=== PATIENT | female | born 1985 | race Caucasian/White ===

== ENCOUNTER 2016-10-20 18:58 | Emergency (ER) | payer BC ==
[~2016-10-20 18:58] MED LIST: CYCL1PAK PO; DILA2TAB2; DILA2TAB2 PO; GABA300 PO; NORT1CAP53 PO; PERI8.6T PO
[2016-10-20 19:00] VITALS: BP 142/83; PULSE 115; RESP 20; TEMP 97.8; O2SAT 99
--- NOTE | 2016-10-21 17:30 | EKG ---
Date Performed: 10/20/2016 Time Performed: 19:53:04 PTAGE: 30 years EKG: SINUS TACHYCARDIA WHEN COMPARED TO PRIOR TRACING PATIENT IS NOW TACHYCARDIC. ABNORMAL RHYTH M ECG NO PREVIOUS TRACING DOCTOR: Madeline Zheng Interpretating Date/Time 10/21/2016 17:29:02
[2016-10-21] MEDS ORDERED: ROBA750T PO (18:37)
== END 2016-10-20 20:36 | disposition left against medical advice (07) ==
LOC: NED 18:58
DX: R00.0 Tachycardia, unspecified (principal)
CPT/HCPCS: 93005; 99281

== ENCOUNTER 2016-10-21 13:59 | Emergency (ER) | payer BC ==
[~2016-10-21] VITALS: Ht 170.2 cm; Wt 70.0 kg
[2016-10-21 14:02] VITALS: BP 136/93; PULSE 78; RESP 16; TEMP 98.4; O2SAT 98
[2016-10-21 15:11] VITALS: BP 134/90; PULSE 118; RESP 29; O2SAT 99
[2016-10-21] MEDS ORDERED: SODIUM CHLORIDE 0.9% FLUSH 5 ML FLUSH IVF PRN (15:15)
--- NOTE | 2016-10-21 15:36 | PD ---
HPI Chief Complaint: Chest Pain Time Seen by Provider: 15:02 Travel History International Travel<30 days: No Contact w/Intl Traveler<30days: No Traveled to known affect area: No History of Present Illness HPI 30-year-old female with history of heroin IVDU here with complaint of chest pain. She has had now 3 days of pleuritic left-sided chest pain that radiates inframammary and subscapular. Pain is made worse with deep inspiration, movement. She notes cough productive of clear to yellow sputum. No fevers or chills. Patient notes a history of PE, right sided. This was at [facility] 4 months ago. She was discharged home with Lovenox but discontinued using the stating that the injections hurt. She is unable to tell me whether these were or were not septic pulmonary emboli. [facility] Past Medical History ADD: Yes ADHD: Yes Arthritis: No Asthma: No Autoimmune Disease: No Blood Disorders: No Bipolar Disorder: Yes Anxiety: Yes Depression: Yes Heart Rhythm Problems: No Cancer: No Cardiovascular Problems: No High Cholesterol: No Chemotherapy: No Chest Pain: No Congestive Heart Failure: No COPD: No Cerebrovascular Accident: No Diabetes: No Diminished Hearing: No Endocrine: No Gastrointestinal Disorders: Yes (CHRON'S DISEASE) GERD: No Glaucoma: No Genitourinary: Yes Headaches: No Hepatitis: Yes (HEPATITIS C) Hiatal Hernia: No Hypertension: No Immune Disorder: No Kidney Stones: No Musculoskeletal: No Neurologic: Yes (seizures) Psychiatric: No Reproductive: No Respiratory: Yes (PE) Migraines: No Myocardial Infarction: No Pancreatitis: Yes Radiation Therapy: No Renal Failure: Yes Seizures: Yes Sickle Cell Disease: No Sleep Apnea: No Thyroid Disease: No Ulcer: No PNEUMOCCOCAL Vaccine (Year): 3 ?: Not LMP: 10/02/16 Menopausal: No : 4 Para: 3 Miscarriage: 1 : 0 Ovarian Cysts: Yes (L OVARY REMOVED) Dilation and Curettage (D&C): Yes (01/06) Past Surgical History Abdominal Surgery: Yes (INTESTINE SURGERY) AICD: No Appendectomy: Yes Arteriovenous Shunt: No Cardiac Surgery: No Section: No Cholecystectomy: Yes Ear Surgery: No Endocrine Surgery: No Eye Surgery: No Genitourinary Surgery: No Gynecologic Surgery: Yes (LT OVARY/FALLOPIAN TUBE REMOVED, D&C) Insulin Pump: No Joint Replacement: No Neurologic Surgery: No Oral Surgery: No Pacemaker: No Thoracic Surgery: No Other Surgery: Yes (COMPARTMENT SYNDROME SX L WRIST 06/04) Social History Alcohol Use: Yes (OCC.) Tobacco Use: No (3 YRS. AGO/USES E CIGARETTES NOW) Substance Use: No Allergies-Medications (Allergen,Severity, Reaction): Coded Allergies: Codeine (Verified Allergy, Severe, Itching, 10/21/16) *MDRO Multi-Drug Resistant Organism (Verified Allergy, Unknown, 10/21/16) MRSA 2007 Reported Meds & Prescriptions Reported Meds & Active Scripts Active No Active Prescriptions or Reported Medications Review of Systems ROS Limitations: Poor Historian Except as stated in HPI: all other systems reviewed are Neg Physical Exam Exam Limitations: Poor Historian Narrative GENERAL: Young female restless but in no acute distress SKIN: Warm and dry. Tract pastor of various ages on the upper extremities HEAD: Normocephalic. EYES: No scleral icterus. No injection or drainage. ENT: Mucous membranes pink and moist. NECK: Supple CARDIOVASCULAR: Regular rate and rhythm. No murmur appreciated. Reproducible tenderness to palpation of the left side of the chest wall. No rash. RESPIRATORY: No accessory muscle use. Clear to auscultation. Breath sounds equal bilaterally. GASTROINTESTINAL: Abdomen soft, non-tender, nondistended. MUSCULOSKELETAL: Tract pastor as above. No edema. NEUROLOGICAL: Awake and alert. Normal speech. PSYCHIATRIC: Appropriate mood and affect; insight and judgment normal. Data Data Last Documented VS Vital Signs Date Time Temp Pulse Resp B/P Pulse Ox O2 Delivery O2 Flow Rate FiO2 10/21/16 15:11 118 29 134/90 99 Room Air 10/21/16 14:02 98.4 Orders Complete Blood Count With Diff (10/21/16 15:02) Basic Metabolic Panel (Bmp) (10/21/16 15:02) D-Dimer (10/21/16 15:02) Iv Access Insert/Monitor (10/21/16 15:02) Electrocardiogram (10/21/16 15:02) Ecg Monitoring (10/21/16 15:02) Oximetry (10/21/16 15:02) Sodium Chloride 0.9% Flush (Ns Flush) (10/21/16 15:15) Chest, Single Ap (10/21/16 ) Blood Culture (10/21/16 15:33) Ketorolac Inj (Toradol Inj) (10/21/16 15:45) Ct Pulmonary Angiogram (10/21/16 16:12) Labs Laboratory Tests Test 10/21/16 15:30 White Blood Count 9.5 TH/MM3 Red Blood Count 3.77 MIL/MM3 Hemoglobin 9.5 GM/DL Hematocrit 30.1 % Mean Corpuscular Volume 79.8 FL Mean Corpuscular Hemoglobin 25.2 PG Mean Corpuscular Hemoglobin 31.5 % Concent Red Cell Distribution Width 15.5 % Platelet Count 292 TH/MM3 Mean Platelet Volume 6.6 FL Neutrophils (%) (Auto) 79.2 % Lymphocytes (%) (Auto) 13.5 % Monocytes (%) (Auto) 6.9 % Eosinophils (%) (Auto) 0.1 % Basophils (%) (Auto) 0.3 % Neutrophils # (Auto) 7.5 TH/MM3 Lymphocytes # (Auto) 1.3 TH/MM3 Monocytes # (Auto) 0.6 TH/MM3 Eosinophils # (Auto) 0.0 TH/MM3 Basophils # (Auto) 0.0 TH/MM3 CBC Comment DIFF FINAL Differential Comment D-Dimer Quantitative (PE/DVT) 1.69 MG/L FEU Sodium Level 137 MEQ/L Potassium Level 3.8 MEQ/L Chloride Level 105 MEQ/L Carbon Dioxide Level 21.4 MEQ/L Anion Gap 11 MEQ/L Blood Urea Nitrogen 4 MG/DL Creatinine 0.55 MG/DL Estimat Glomerular Filtration 129 ML/MIN Rate Random Glucose 92 MG/DL Calcium Level 8.3 MG/DL MDM Medical Decision Making Medical Screen Exam Complete: Yes Emergency Medical Condition: Yes Medical Record Reviewed: Yes Differential Diagnosis 33-year-old female with history of heroin IVDU here with complaint of left- sided pleuritic chest pain 3 days with cough. Differential includes pneumonia , PE, septic pulmonary emboli, bacteremia, musculoskeletal. My suspicion for ACS or aortic dissection is exceedingly low. Narrative Course A buck placed on monitor, IV established and blood obtained. Given 30 mg Toradol. Twelve-lead EKG showed sinus tachycardia, rate [address] abnormalities, normal intervals. CBC, BMP, d-dimer, blood cultures notable for WBC 9.5, d-dimer 1.69. Portable chest x-ray obtained that by my read shows no acute abnormalities. CT pulmonary angiogram ordered, results remain pending at the time this dictation. Patient signed out to oncoming provider waiting results of same. Scripts No Active Prescriptions or Reported Meds Iesha Diehl MD Oct 21, 2016 15:36
--- NOTE | 2016-10-21 15:44 | RADRPT ---
EXAM DATE/TIME: 10/21/2016 15:07 [facility] COMPARISON: CHEST SINGLE AP, April 03, 2016, 15:16. INDICATIONS : Left side chest pain. MEDICAL HISTORY : Seizures. SURGICAL HISTORY : None. ENCOUNTER: Initial ACUITY: 2 days PAIN SCORE: 6/10 LOCATION: Left chest FINDINGS: Portable AP view of the chest demonstrates a normal-sized cardiac silhouette. No effusion, consolidat ion, or pneumothorax is visualized. The bones and soft tissues demonstrate no acute abnormality. Lung s are mildly underinflated. CONCLUSION: No acute cardiopulmonary abnormality is identified. Valdemar Meng MD on October 21, 2016 at 15:43 Board Certified Radiologist. This report was verified electronically.
[2016-10-21] MEDS ORDERED: KETOROLAC TROMETHAMINE 30 MG/ML (IVP) VIAL IV PUSH ONE (15:45)
[2016-10-21 15:53] LABS: AUTOMATED NEUTROPHIL # 7.5 TH/MM3 (1.8-7.7); BASOPHIL % 0.3 % (0.0-2.0); EOSINOPHIL % 0.1 % (0.0-4.0); HEMATOCRIT 30.1 % (35.0-46.0); HEMO FLAGS DIFF FINAL; LYMPH % 13.5 % (9.0-44.0); LYMPHOCYTE # 1.3 TH/MM3 (1.0-4.8); MEAN CELL VOLUME 79.8 FL (80.0-100.0); MEAN CORPUSCULAR HEMOGLOBIN 25.2 PG (27.0-34.0); MEAN CORPUSCULAR HGB CONC 31.5 % (32.0-36.0); MONO % 6.9 % (0.0-8.0); NEUT % 79.2 % (16.0-70.0); PLATELET COUNT 292 TH/MM3 (150-450); RED BLOOD COUNT 3.77 MIL/MM3 (4.00-5.30); RED CELL DISTRIBUTION WIDTH 15.5 % (11.6-17.2); WHITE BLOOD COUNT 9.5 TH/MM3 (4.0-11.0)
[2016-10-21 16:09] LABS: BICARBONATE 21.4 MEQ/L (21.0-32.0); POTASSIUM 3.8 MEQ/L (3.5-5.1)
--- NOTE | 2016-10-21 17:09 | PD ---
Physical Exam Narrative Patient was seen by ED physician and signed out to me. Data Data Last Documented VS Vital Signs Date Time Temp Pulse Resp B/P Pulse Ox O2 Delivery O2 Flow Rate FiO2 10/21/16 15:11 118 29 134/90 99 Room Air 10/21/16 14:02 98.4 Orders Complete Blood Count With Diff (10/21/16 15:02) Basic Metabolic Panel (Bmp) (10/21/16 15:02) D-Dimer (10/21/16 15:02) Iv Access Insert/Monitor (10/21/16 15:02) Electrocardiogram (10/21/16 15:02) Ecg Monitoring (10/21/16 15:02) Oximetry (10/21/16 15:02) Sodium Chloride 0.9% Flush (Ns Flush) (10/21/16 15:15) Chest, Single Ap (10/21/16 ) Blood Culture (10/21/16 15:33) Ketorolac Inj (Toradol Inj) (10/21/16 15:45) Ct Pulmonary Angiogram (10/21/16 16:12) Iohexol 350 Inj (Omnipaque 350 Inj) (10/21/16 18:10) Labs Laboratory Tests Test 10/21/16 15:30 White Blood Count 9.5 TH/MM3 Red Blood Count 3.77 MIL/MM3 Hemoglobin 9.5 GM/DL Hematocrit 30.1 % Mean Corpuscular Volume 79.8 FL Mean Corpuscular Hemoglobin 25.2 PG Mean Corpuscular Hemoglobin 31.5 % Concent Red Cell Distribution Width 15.5 % Platelet Count 292 TH/MM3 Mean Platelet Volume 6.6 FL Neutrophils (%) (Auto) 79.2 % Lymphocytes (%) (Auto) 13.5 % Monocytes (%) (Auto) 6.9 % Eosinophils (%) (Auto) 0.1 % Basophils (%) (Auto) 0.3 % Neutrophils # (Auto) 7.5 TH/MM3 Lymphocytes # (Auto) 1.3 TH/MM3 Monocytes # (Auto) 0.6 TH/MM3 Eosinophils # (Auto) 0.0 TH/MM3 Basophils # (Auto) 0.0 TH/MM3 CBC Comment DIFF FINAL Differential Comment D-Dimer Quantitative (PE/DVT) 1.69 MG/L FEU Sodium Level 137 MEQ/L Potassium Level 3.8 MEQ/L Chloride Level 105 MEQ/L Carbon Dioxide Level 21.4 MEQ/L Anion Gap 11 MEQ/L Blood Urea Nitrogen 4 MG/DL Creatinine 0.55 MG/DL Estimat Glomerular Filtration 129 ML/MIN Rate Random Glucose 92 MG/DL Calcium Level 8.3 MG/DL [facility] Supervised Visit with OSIRIS: No Interpretation(s) Last Impressions Chest X-Ray 10/21/16 0000 Signed Impressions: Service Date/Time: Friday, October 21, 2016 15:07 - CONCLUSION: No acute cardiopulmonary abnormality is identified. Valdemar Meng MD [address] pulmonary angiogram shows no evidence of PE. Diagnosis Primary Impression: Atypical chest pain Patient Instructions: General Instructions Additional Instruction: Robaxin as needed for pain. Advised patient to take Lovenox as directed. Follow-up with personal physician. Return if worse. Med/Other Pt SpecificInfo: Prescription(s) given Scripts Methocarbamol (Robaxin)750 Mg [id number] Mg PO QID #40 TAB Prov:Seb Medrano MD 10/21/16 Disposition: 01 DISCHARGE HOME Condition: Stable Seb Medrano MD Oct 21, 2016 17:09
[2016-10-21] MEDS ORDERED: IOHEXOL 350 MG/ML 10 ML VIAL (for RAD DIAG) IV ONE (18:10)
--- NOTE | 2016-10-21 18:31 | RADRPT ---
EXAM DATE/TIME: 10/21/2016 18:00 [facility] COMPARISON: CT PULMONARY ANGIOGRAM, April 04, 2016, 19:38. INDICATIONS : Left chest pain x 2 days. IV CONTRAST: 55 cc Omnipaque 350 (iohexol) IV RADIATION DOSE: 8.23 CTDIvol (mGy) MEDICAL HISTORY : Renal failure, chronic. Crohns disease. Pulmonary embolism. SURGICAL HISTORY : Appendectomy. Cholecystectomy. ENCOUNTER: Initial ACUITY: 2 days PAIN SCALE: 7/10 LOCATION: Left chest TECHNIQUE: Volumetric scanning of the chest was performed using a pulmonary embolism protocol MIP images were re constructed. Using automated exposure control and adjustment of the mA and/or kV according to patien t size, radiation dose was kept as low as reasonably achievable to obtain optimal diagnostic quality images. FINDINGS: PULMONARY ARTERIES: No filling defects are seen in the pulmonary arteries through the segmental level. LUNGS: There is no consolidation or pneumothorax . No concerning pulmonary nodule is visualized. PLEURAE: There is no pleural thickening or pleural effusion. MEDIASTINUM: There is good visualization of the great vessels of the middle mediastinum. No evidence of mediastin al or hilar adenopathy/mass. MUSCULOSKELETAL: Within normal limits for patient age. MISCELLANEOUS: The visualized upper abdominal organs demonstrate no acute abnormality. CONCLUSION: Normal examination. Star Sheikh Jr., MD on October 21, 2016 at 18:26 Board Certified Radiologist. This report was verified electronically.
[2016-10-21] MEDS ORDERED: ROBA750T PO (18:37)
[2016-10-21 19:07] VITALS: BP 128/77
--- NOTE | 2016-10-21 19:20 | EKG ---
Date Performed: 10/21/2016 Time Performed: 16:02:07 PTAGE: 30 years EKG: SINUS TACHYCARDIA WITH SHORT TX INTERVAL ABNORMAL RHYTHM ECG NO SIGNIFICANT CHANGE FROM KB OR ELECTROCARDIOGRAM. PREVIOUS TRACING : 10/20/2016 19.53 DOCTOR: Miguel Ospina Interpretating Date/Time 10/21/2016 19:18:52
== END 2016-10-21 19:10 | disposition home or self-care (01) ==
LOC: NEPD 13:59
DX: R07.89 Other chest pain (principal); R05 Cough; Z86.711 Personal history of pulmonary embolism; K50.90 Crohn's disease, unspecified, without complications; B19.20 Unspecified viral hepatitis C without hepatic coma; F17.200 Nicotine dependence, unspecified, uncomplicated; B96.89 Other specified bacterial agents as the cause of diseases classified elsewhere
CPT/HCPCS: 71010; 71275; 80048; 85025; 85379; 87040; 87077; 87186; 87205; 93005; 96374; 99285; J1885; Q9967

== ENCOUNTER 2018-03-13 02:23 | Emergency (ER) | payer SELFPAY ==
[~2018-03-13] VITALS: Ht 170.2 cm; Wt 69.7 kg
[~2018-03-13 02:23] MED LIST changes: -CYCL1PAK PO; -DILA2TAB2; -DILA2TAB2 PO; -GABA300 PO; -NORT1CAP53 PO; -PERI8.6T PO; +ROBA750T PO
[2018-03-13 02:52] VITALS: BP 135/81; PULSE 132; RESP 18; TEMP 98.4; O2SAT 95
[2018-03-13] MEDS ORDERED: SODIUM CHLORIDE 0.9% FLUSH 10 ML FLUSH IV FLUSH PRN (03:30)
[2018-03-13] MEDS ORDERED: MORPHINE SULFATE 4 MG/ML INJ IV PUSH ONE ×2 (03:30→05:00)
[2018-03-13] MEDS ORDERED: SODIUM CHLORID 0.9% 500 ML INJ 500 ML IV ONE (03:30)
[2018-03-13] MEDS ORDERED: ONDANSETRON ODT 4 MG TAB PO ONE (03:30)
[2018-03-13 04:22] VITALS: BP 111/85; PULSE 104; RESP 18; O2SAT 96
[2018-03-13 04:23] LABS: BILIRUBIN, URINE NEG (NEG); BLOOD, URINE NEG (NEG); GLUCOSE,URINE NEG (NEG); KETONE, URINE NEG (NEG); NITRITE,URINE NEG (NEG); PH, URINE 7.5 (5.0-8.5); URINE COLOR YELLOW (YELLW/STRAW); URINE LEUKOCYTE ESTERASE TRACE (NEG)
[2018-03-13 04:25] LABS: AUTOMATED NEUTROPHIL # 3.8 TH/MM3 (1.8-7.7); BASOPHIL % 0.3 % (0.0-2.0); EOSINOPHIL % 0.6 % (0.0-4.0); HEMATOCRIT 41.2 % (35.0-46.0); HEMOGLOBIN 13.8 GM/DL (11.6-15.3); LYMPH % 34.5 % (9.0-44.0); LYMPHOCYTE # 2.3 TH/MM3 (1.0-4.8); MEAN CELL VOLUME 93.1 FL (80.0-100.0); MEAN CORPUSCULAR HEMOGLOBIN 31.1 PG (27.0-34.0); MEAN CORPUSCULAR HGB CONC 33.4 % (32.0-36.0); MEAN PLATELET VOLUME 7.6 FL (7.0-11.0); MONO % 7.3 % (0.0-8.0); MONOCYTE # 0.5 TH/MM3 (0-0.9); NEUT % 57.3 % (16.0-70.0); PLATELET COUNT 215 TH/MM3 (150-450); RED BLOOD COUNT 4.42 MIL/MM3 (4.00-5.30); RED CELL DISTRIBUTION WIDTH 17.6 % (11.6-17.2); WHITE BLOOD COUNT 6.6 TH/MM3 (4.0-11.0)
[2018-03-13 04:32] LABS: BACTERIA, URINE OCC /hpf; MUCUS URINE FEW /lpf (OCC); RBC, URINE 0-3 /hpf (0-3); SQUAMOUS EPITHELIAL CELL URINE 0-5 /hpf (0-5)
[2018-03-13 04:33] LABS: AMORPHOUS SEDIMENT, URINE MOD
[2018-03-13 04:44] LABS: CHLORIDE 106 MEQ/L (98-107); SODIUM (NA) 140 MEQ/L (136-145)
[2018-03-13 04:48] LABS: ALBUMIN 3.2 GM/DL (3.4-5.0); BICARBONATE 22.7 MEQ/L (21.0-32.0); BLOOD UREA NITROGEN 4 MG/DL (7-18); CALCIUM 8.1 MG/DL (8.5-10.1); GLUCOSE,RANDOM 87 MG/DL (74-106); INTERNATIONAL NORMALIZED RATIO 1.1 RATIO; PROTHROMBIN TIME - PATIENT 11.4 SEC (9.8-11.6)
[2018-03-13 04:51] LABS: ALT (GPT) 54 U/L (10-53); AST (GOT) 191 U/L (15-37); CREATININE 0.47 MG/DL (0.50-1.00); GLOMERULAR FILTRATION RATE 153 ML/MIN (>89)
[2018-03-13 04:53] LABS: TOTAL BILIRUBIN ADULT 0.7 MG/DL (0.2-1.0); TOTAL PROTEIN 8.3 GM/DL (6.4-8.2)
[2018-03-13 04:54] LABS: ALKALINE PHOSPHATASE 268 U/L (45-117)
[2018-03-13 05:10] VITALS: BP 110/72; PULSE 106; RESP 18; O2SAT 95
--- NOTE | 2018-03-13 05:14 | PD ---
HPI Chief Complaint: GI Complaint Time Seen by Provider: 03:04 Travel History International Travel<30 days: No Contact w/Intl Traveler<30days: No Traveled to known affect area: No History of Present Illness HPI Patient is a 32-year-old female comes in complaining of abdominal pain. She has history of hepatitis C as well as Crohn's disease, and says that she has been having pain for the past 2 months, but it became acutely worse tonight. She says the pain is coming in waves and is mostly on the right side of her abdomen. She reports a few episodes of vomiting fresh blood. She says she has not been eating very much lately, so has not had very regular bowel movements. She says she had a fever 3 days ago, nothing since then. She denies any urinary symptoms. She does have history of IV drug abuse and is a chronic alcoholic. She says she tried to use heroin yesterday to ease her pain, but it did not help. Severity is moderate. PFSH Past Medical History ADD: Yes ADHD: Yes Arthritis: No Asthma: No Autoimmune Disease: No Blood Disorders: No Bipolar Disorder: Yes Anxiety: Yes Depression: Yes Heart Rhythm Problems: No Cancer: No Cardiovascular Problems: No High Cholesterol: No Chemotherapy: No Chest Pain: No Congestive Heart Failure: No COPD: No Cerebrovascular Accident: No Diabetes: No Diminished Hearing: No Endocrine: No Gastrointestinal Disorders: Yes (CHRON'S DISEASE) GERD: No Glaucoma: No Genitourinary: Yes Headaches: No Hepatitis: Yes (HEPATITIS C) Hiatal Hernia: No Hypertension: No Immune Disorder: No Kidney Stones: No Musculoskeletal: No Neurologic: Yes (seizures) Psychiatric: No Reproductive: No Respiratory: Yes (PE) Immunizations Current: Yes Migraines: No Myocardial Infarction: No Pancreatitis: Yes Radiation Therapy: No Renal Failure: Yes Seizures: Yes Sickle Cell Disease: No Sleep Apnea: No Thyroid Disease: No Ulcer: No Tetanus Vaccination: < 5 Years Influenza Vaccination: Yes PNEUMOCCOCAL Vaccine (Year): 3 ?: Unknown LMP: 6 weeks ago Menopausal: No : 4 Para: 3 Miscarriage: 1 : 0 Ovarian Cysts: Yes (L OVARY REMOVED) Dilation and Curettage (D&C): Yes (01/06) Past Surgical History Abdominal Surgery: Yes (INTESTINE SURGERY) AICD: No Appendectomy: Yes Arteriovenous Shunt: No Cardiac Surgery: No Section: No Cholecystectomy: Yes Ear Surgery: No Endocrine Surgery: No Eye Surgery: No Genitourinary Surgery: No Gynecologic Surgery: Yes (LT OVARY/FALLOPIAN TUBE REMOVED, D&C) Insulin Pump: No Joint Replacement: No Neurologic Surgery: No Oral Surgery: No Pacemaker: No Thoracic Surgery: No Other Surgery: Yes (COMPARTMENT SYNDROME SX L WRIST 06/04) Social History Alcohol Use: Yes (HARD LIQUOR) Tobacco Use: Yes (1/2 PPD) Substance Use: No Allergies-Medications (Allergen,Severity, Reaction): Coded Allergies: codeine (Unverified Allergy, Severe, Itching, 03/13/18) *MDRO Multi-Drug Resistant Organism (Verified Allergy, Unknown, 03/13/18) MRSA 2007 Reported Meds & Prescriptions Reported Meds & Active Scripts Active No Active Prescriptions or Reported Medications Review of Systems Except as stated in HPI: all other systems reviewed are Neg General / Constitutional: Positive: Fever HENT: No: Headaches, Lightheadedness Cardiovascular: No: Chest Pain or Discomfort Respiratory: No: Shortness of Breath Gastrointestinal: Positive: Nausea, Vomiting, Abdominal Pain Genitourinary: No: Dysuria Musculoskeletal: No: Myalgias, Edema Skin: No Rash, No Change in Pigmentation Neurologic: No: Weakness, Dizziness Physical Exam Narrative GENERAL: Awake and alert, no acute distress. SKIN: Focused skin assessment warm/dry. No wounds or signs of infection. HEAD: Atraumatic. Normocephalic. EYES: Pupils equal and round. No scleral icterus. ENT: Mucous membranes pink and moist. NECK: Trachea midline. No JVD. CARDIOVASCULAR: Regular rate and rhythm. No murmur appreciated. RESPIRATORY: No accessory muscle use. Clear to auscultation. Breath sounds equal bilaterally. GASTROINTESTINAL: Abdomen soft, nondistended. Mild diffuse tenderness, tenderness is worse on the right side. No rebound, voluntary guarding. MUSCULOSKELETAL: No obvious deformities. No clubbing. No cyanosis. No edema. NEUROLOGICAL: Awake and alert. No obvious cranial nerve deficits. Motor grossly within normal limits. Normal speech. PSYCHIATRIC: Appropriate mood and affect; insight and judgment normal. Data Data Last Documented VS Vital Signs Date Time Temp Pulse Resp B/P (MAP) Pulse Ox O2 Delivery O2 Flow Rate FiO2 03/13/18 05:10 106 18 110/72 (85) 95 Room Air 03/13/18 02:52 98.4 Orders Orders Complete Blood Count With Diff (03/13/18 03:23) Comprehensive Metabolic Panel (03/13/18 03:23) Lipase (03/13/18 03:23) Lactic Acid (03/13/18 03:23) Prothrombin Time / Inr (Pt) (03/13/18 03:23) Act Partial Throm Time (Ptt) (03/13/18 03:23) Urinalysis - C+S If Indicated (03/13/18 03:23) Ct Abd/Pel W Iv Contrast(Rout) (03/13/18 03:23) Iv Access Insert/Monitor (03/13/18 03:23) Ecg Monitoring (03/13/18 03:23) Oximetry (03/13/18 03:23) Morphine Inj (Morphine Inj) (03/13/18 03:30) Sodium Chloride 0.9% Flush (Ns Flush) (03/13/18 03:30) Ed Urine Pregnancytest Poc (03/13/18 03:23) Ondansetron Odt (Zofran Odt) (03/13/18 03:30) Sodium Chlorid 0.9% 500 Ml Inj (Ns 500 M (03/13/18 03:30) Morphine Inj (Morphine Inj) (03/13/18 05:00) Iohexol 350 Inj (Omnipaque 350 Inj) (03/13/18 05:16) Potassium Chloride (Kcl) (03/13/18 05:45) Labs Laboratory Tests Test 03/13/18 03:45 03/13/18 03:51 Urine Color YELLOW Urine Turbidity CLEAR Urine pH 7.5 Urine Specific [place] 1.010 Urine Protein TRACE mg/dL Urine Glucose (UA) NEG mg/dL Urine Ketones NEG mg/dL Urine Occult Blood NEG Urine Nitrite NEG Urine Bilirubin NEG Urine Urobilinogen 2.0 MG/DL Urine Leukocyte Esterase TRACE Urine RBC 0-3 /hpf Urine WBC 3-5 /hpf Urine Squamous Epithelial Cells 0-5 /hpf Urine Amorphous Sediment MOD Urine Bacteria OCC /hpf Urine Mucus FEW /lpf Microscopic Urinalysis Comment CULT NOT INDICATED White Blood Count 6.6 TH/MM3 Red Blood Count 4.42 MIL/MM3 Hemoglobin 13.8 GM/DL Hematocrit 41.2 % Mean Corpuscular Volume 93.1 FL Mean Corpuscular Hemoglobin 31.1 PG Mean Corpuscular Hemoglobin Concent 33.4 % Red Cell Distribution Width 17.6 % Platelet Count 215 TH/MM3 Mean Platelet Volume 7.6 FL Neutrophils (%) (Auto) 57.3 % Lymphocytes (%) (Auto) 34.5 % Monocytes (%) (Auto) 7.3 % Eosinophils (%) (Auto) 0.6 % Basophils (%) (Auto) 0.3 % Neutrophils # (Auto) 3.8 TH/MM3 Lymphocytes # (Auto) 2.3 TH/MM3 Monocytes # (Auto) 0.5 TH/MM3 Eosinophils # (Auto) 0.0 TH/MM3 Basophils # (Auto) 0.0 TH/MM3 CBC Comment DIFF FINAL Differential Comment Prothrombin Time 11.4 SEC Prothromb Time International Ratio 1.1 RATIO Activated Partial Thromboplast Time 26.5 SEC Blood Urea Nitrogen 4 MG/DL Creatinine 0.47 MG/DL Random Glucose 87 MG/DL Total Protein 8.3 GM/DL Albumin 3.2 GM/DL Calcium Level 8.1 MG/DL Alkaline Phosphatase 268 U/L Aspartate Amino Transf (AST/SGOT) 191 U/L Alanine Aminotransferase (ALT/SGPT) 54 U/L Total Bilirubin 0.7 MG/DL Sodium Level 140 MEQ/L Potassium Level 3.2 MEQ/L Chloride Level 106 MEQ/L Carbon Dioxide Level 22.7 MEQ/L Anion Gap 11 MEQ/L Estimat Glomerular Filtration Rate 153 ML/MIN Lactic Acid Level 1.9 mmol/L Lipase 79 U/L MDM Medical Decision Making Medical Screen Exam Complete: Yes Emergency Medical Condition: Yes Medical Record Reviewed: Yes Differential Diagnosis Crohn's flare versus colitis versus kidney stone versus diverticulitis versus ascites versus chronic pain Narrative Course Patient is a 32-year-old female who comes in complaining of right-sided abdominal pain. Exam shows mild tenderness to palpation. IV established, labs sent. Labs show no acute abnormalities, other than a potassium of 3.2. This was replaced. AST and ALT are elevated, but patient is a chronic alcoholic and has history of hepatitis C. She is informed of these results. CT abdomen and pelvis performed shows no acute abnormalities, no cause for her pain. Last 24 hours Impressions Abdomen/Pelvis CT 03/13/18 0381 Signed Impressions: CONCLUSION: 1. Severe hepatic steatosis. 2. Cholecystectomy. Patient advised of all of her results. Advised to seek help to quit drinking. Advised to stop using IV drugs. She will be discharged home with a course of steroids for possible Crohn's flare. Given a prescription for a few pain pills. Mandatory referral placed to GI. Advised return as needed for any worsening symptoms. Diagnosis Primary Impression: Abdominal pain Qualified Codes: R10.11 - Right upper quadrant pain Referrals: Stephie Magana MD call for appointment [facility] for appointment Patient Instructions: Abdominal Pain (ED), General Instructions Additional Instructions: Follow-up with gastroenterology. Take all of the steroids. Take pain medicine as needed. Return to the ED as needed for any worsening symptoms. Seek treatment for help with alcohol abuse and drug abuse. Scripts Oxycodone (Oxycodone) 5 Mg Cap 5 MG PO Q6H Y for PAIN, #7 CAP 0 Refills Prov: Rachel Adams MD 03/13/18 Methylprednisolone Dosepak (Medrol Dosepak) 4 Mg Dspk 4 MG PO DIRECTED, #1 DSPK 0 Refills Per Pharmacist direction Prov: Rachel Adams MD 03/13/18 Disposition: DISCHARGE HOME Condition: Stable Rachel Adams MD Mar 13, 2018 05:14
[2018-03-13] MEDS ORDERED: IOHEXOL 350 MG/ML 10 ML VIAL (for RAD DIAG) IVCONTRAST ONE (05:16)
--- NOTE | 2018-03-13 05:27 | RADRPT ---
EXAM DATE: 03/13/2018 5:15 AM EDT AGE/SEX: 32 years / Female INDICATIONS: Diffuse abdominal pain for two months, nausea, vomiting, diarrhea. CLINICAL DATA: This is the patient's initial encounter. Patient reports that signs and symptoms have been present for 2 months and indicates a pain score of 10/10. MEDICAL/SURGICAL HISTORY: Crohn's disease. Pancreatitis. Appendectomy. Cholecystectomy. Left ovary removed. ORAL CONTRAST: No oral contrast ingested. RADIATION DOSE: 7.80 CTDI (mGy) COMPARISON: [facility] [place], CT ABDOMEN & PELVIS W CONTRAST, 05/04/2016. . TECHNIQUE: Multiple contiguous axial images were obtained through the abdomen and pelvis following b olus infusion of 91 ml Omnipaque 350 (iohexol) nonionic water-soluble contrast as a single exam dos e. No oral contrast ingested. Using automated exposure control and adjustment of the mA and/or kV ac cording to patient size, the radiation dose was kept as low as reasonably achievable to obtain optima l diagnostic quality images. FINDINGS: Lower Lungs: The visualized lower lungs are clear. Liver: The liver is decreased in density without space-occupying lesion. Status post cholecystectomy. There is no dilation of the biliary tree. Spleen: Homogeneous density without enlargement. Pancreas: Unremarkable without mass or calcification. Kidneys: Normal in size and shape. No evidence of mass or hydronephrosis. Adrenal Glands: Unremarkable. Aorta: The aorta and proximal iliac vessels are grossly unremarkable without aneurysmal dilation. Bowel/Mesentery: The bowel loops are grossly unremarkable. The cecum and sigmoid colon have a normal configuration. No dilated bowel loops or wall thickening. Abdominal Wall: Small fat-containing umbilical hernia. Retroperitoneum: No evidence of adenopathy in the retrocrural, para-aortic, or deep pelvic regions. Bladder: Contours are smooth. Reproductive Organs: No abnormal masses or calcifications seen. Inguinal: The inguinal region is unremarkable without evidence of adenopathy. Bony Structures: Unremarkable. CONCLUSION: 1. Severe hepatic steatosis. 2. Cholecystectomy. Electronically signed by: Tulio Yoder MD 03/13/2018 5:26 AM EDT
[2018-03-13] MEDS ORDERED: OXYC1CAP PO (05:44)
[2018-03-13] MEDS ORDERED: MEDR4PAK PO (05:44)
[2018-03-13] MEDS ORDERED: POTASSIUM CHLORIDE 10 MEQ CONTROLLED RELEASE TAB PO ONE (05:45)
[2018-03-13 06:04] VITALS: BP 101/64
== END 2018-03-13 06:21 | disposition home or self-care (01) ==
LOC: PHED 02:23
DX: R10.11 Right upper quadrant pain (principal); K76.0 Fatty (change of) liver, not elsewhere classified; R11.2 Nausea with vomiting, unspecified; F90.9 Attention-deficit hyperactivity disorder, unspecified type; F31.9 Bipolar disorder, unspecified; F41.9 Anxiety disorder, unspecified; N19 Unspecified kidney failure; F17.200 Nicotine dependence, unspecified, uncomplicated; Z87.19 Personal history of other diseases of the digestive system; Z86.69 Personal history of other diseases of the nervous system and sense organs; Z90.49 Acquired absence of other specified parts of digestive tract; Z86.19 Personal history of other infectious and parasitic diseases; Z88.5 Allergy status to narcotic agent
CPT/HCPCS: 74177; 80053; 81001; 83605; 83690; 84703; 85025; 85610; 85730; 96361; 96374; 96376; 99284; J2270; J7040; Q9967